=== PATIENT | male | born 1960 | race Caucasian/White ===

== ENCOUNTER → 2019-12-01 17:40 | Outpatient (CLI) | payer MEDICARE, SELFPAY ==
--- NOTE | 2019-12-01 17:49 | XR_ITS ---
PROCEDURE: XR CHEST 2V CLINICAL HISTORY: COPD COMPARISON: CXR CHEST(2 VIEWS-NOT PORTABLE) from 05/20/2013 CXR1 CHEST-PORTABLE from 08/12/2013 CXR2 CHEST-AP VIEW ONLY from 01/21/2014 FINDINGS: The cardiomediastinal silhouette and pulmonary vascularity are within normal limits. There is new density in the lateral segment of the right middle lobe. Mild pneumonia is suspected. Remaining lungs are clear of acute infiltrate. There is no pleural effusion. No acute bony abnormalities. IMPRESSION: Small amount of pneumonia right lung base. Dictated by: Jeffrey Garrido 12/02/2019 08:58 Electronically signed by Jeffrey Garrido in [facility] 12/02/2019 08:58
== END ==
PROVIDERS: PCP Nurse Practitioner Family; Visit Provider Nurse Practitioner Family
DX: J44.0 Chronic obstructive pulmonary disease with (acute) lower respiratory infection (principal)
CPT/HCPCS: 71046

== ENCOUNTER 2020-02-05 23:19 | Emergency (ER) | payer MEDICARE, SELFPAY ==
[2020-02-05 23:31] VITALS: BP 192/102; PULSE 101; RESP 15; TEMP 36.5; O2SAT 92; BMI 30.4
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
--- NOTE | 2020-02-05 23:45 | PC.NURSE ---
offered to contact pd for patient. both patient and son stated would be talking to pd tomorrow.
[2020-02-05 23:51] LABS: Basophils # 0.1 K/mm3 (0-0.2); Basophils % 0.3 % (0.1-2.0); Eosinophils # 0.4 K/mm3 (0.0-0.4); Eosinophils % 2.1 % (0.1-12.0); Hematocrit 40.3 % (42.0-52.0); Hemoglobin 13.2 g/dL (14.1-18.0); Lymphocytes # 1.7 K/mm3 (0.7-4.5); Lymphocytes % 8.7 % (10-50); Mean Corpuscular HGB Conc 32.8 g/dL (31.8-35.4); Mean Corpuscular Hemoglobin 28.6 pg (27.0-31.2); Mean Corpuscular Volume 87.1 fl (80-94); Mean Platelet Volume 8.3 fl (7.4-10.4); Monocytes # 0.7 K/mm3 (0.1-1.0); Monocytes % 3.6 % (1.7-9.3); Neutrophils # 16.2 K/mm3 (1.8-7.8); Neutrophils % 85.3 % (37.0-80.0); Platelet Count 271 K/mm3 (142-424); Red Blood Count 4.63 M/mm3 (4.60-6.20); Red Cell Distribution Width 14.9 % (11.5-17.5)
[2020-02-05 23:52] LABS: MANUAL DIFFERENTIAL MANUAL DIFFERENTIAL (MANUAL DIFF)
[2020-02-06 00:01] VITALS: BP 178/95; PULSE 89; RESP 16; O2SAT 97
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
[2020-02-06 00:04] LABS: Alanine Aminotransferase 18 U/L (12-78); Albumin Level 4.1 g/dl (3.5-5.0); Albumin/Globulin Ratio 1.4 (1.1-1.8); Alkaline Phosphatase 93 U/L (38-126); Anion Gap 9.6 mEq/L (5-15); Aspartate Amino Transferase 35 U/L (17-59); Bilirubin,Total 0.3 mg/dl (0.2-1.3); Blood Urea Nitrogen 6 mg/dl (9-20); Calcium 9.1 mg/dl (8.4-10.2); Carbon Dioxide 31 mmol/L (22.0-30.0); Chloride 100 mmol/L (98-107); Creatinine Clearance Estimated 115 mL/min (50-200); Estimated Glomerular Filt Rate 87 ml/min (>60); GFR (African American) 105 ML/MIN (>60); Globulin 2.9 g/dL (1.3-3.2); Glucose 144 mg/dl (74-100); Potassium 3.6 mmoL/L (3.5-5.1); Sodium 137 mmol/L (136-145)
[2020-02-06 00:10] LABS: Salicylate < 1.0 mg/dL (2.0-20.0)
[2020-02-06 00:11] LABS: Acetaminophen < 10 ug/ml (10-30); Ethyl Alcohol < 10 mg/dl (0-10)
[2020-02-06 00:33] VITALS: BP 163/79; PULSE 88; RESP 16; O2SAT 98
[2020-02-06 00:41] LABS: Lymphocytes % 4 % (10-50); Monocytes % 4 % (2-9); Neutrophils % 84 % (42-76); Platelet Estimate Normal; RBC Morphology Normal; Total Cells Counted 100
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
--- NOTE | 2020-02-06 01:47 | PC.NURSE ---
back from radiology. urine collected and sent to lab.
[2020-02-06 01:50] LABS: Microscopic, Urine URINE MICROSCOPIC (MICROSCOPIC)
[2020-02-06 01:53] LABS: Appearance,Urine CLEAR (Clear); Bilirubin,Urine Negative (Negative); Blood, Urine Negative (Negative); Color,Urine YELLOW (Yellow); Glucose,Urine (UA) Negative (Negative); Ketones,Urine Negative (Negative); Leukocyte Esterase,Urine Negative (Negative); Nitrate,Urine Negative (Negative); Protein,Urine Negative (Negative); Urobilinogen,Urine 0.2 EU/dl (0.2)
[2020-02-06 01:55] LABS: Squamous Epithelial Cell,Urine Occasional #/hpf (0-5)
[2020-02-06 02:04] LABS: Amphetamine/Metha Screen,Urine Negative ng/ml (<1000); Benzodiazepines Screen,Urine Negative ng/ml (<200)
[2020-02-06 02:05] LABS: Barbiturates Screen,Urine Negative ng/ml (<200); Cannabinoid Screen,Urine Negative ng/ml (<50)
[2020-02-06 02:06] LABS: Cocaine Screen,Urine Negative ng/ml (<300)
[2020-02-06 02:07] LABS: Methadone Screen,Urine Negative ng/ml (<300); Opiate Screen,Urine Negative ng/ml (<300)
[2020-02-06 02:08] LABS: Phencyclidine Screen,Urine Negative ng/ml (<25)
[2020-02-06 02:11] VITALS: BP 143/95; PULSE 82; RESP 15; O2SAT 96
--- NOTE | 2020-02-06 02:35 | PC.NURSE ---
call placed to [facility]
[2020-02-06 02:38] VITALS: BP 135/89; PULSE 86; RESP 16; O2SAT 98
--- NOTE | 2020-02-06 02:55 | PC.NURSE ---
call placed to [facility]. report given to nga wilcox
--- NOTE | 2020-02-06 03:17 | PC.NURSE ---
[facility] present, awaiting clearance from secondary truck in order to load patient for transport; report given to julian ramesh-p
[2020-02-06 03:53] VITALS: BP 144/89; PULSE 81; RESP 18; TEMP 36.2; O2SAT 98
== END 2020-02-06 03:56 | disposition short-term general hospital (02) ==
PROVIDERS: Emergency Provider Emergency Medicine
DX: S06.5X9A Traumatic subdural hemorrhage with loss of consciousness of unspecified duration, initial encounter (principal); S02.92XA Unspecified fracture of facial bones, initial encounter for closed fracture; S22.32XA Fracture of one rib, left side, initial encounter for closed fracture; S39.91XA Unspecified injury of abdomen, initial encounter; Y04.2XXA Assault by strike against or bumped into by another person, initial encounter; J44.9 Chronic obstructive pulmonary disease, unspecified; F41.8 Other specified anxiety disorders; K21.9 Gastro-esophageal reflux disease without esophagitis; E78.5 Hyperlipidemia, unspecified; I10 Essential (primary) hypertension; Z90.09 Acquired absence of other part of head and neck; Z88.0 Allergy status to penicillin; Z79.899 Other long term (current) drug therapy
CPT/HCPCS: 70450; 70486; 71045; 71275; 72125; 72170; 73030; 74177; 80053; 80305; 80329; 81001; 85007; 85025; 96365; 99284; Q9967

== ENCOUNTER 2020-03-18 12:45 | Emergency (ER) | payer MEDICARE, SELFPAY ==
[2020-03-18] VITALS (8 sets, daily range): BP systolic 148–193; BP diastolic 84–111; PULSE 50–91; RESP 15–20; TEMP 36.6–37.1; O2SAT 91–98; BMI 30.4
--- NOTE | 2020-03-18 12:46 | ECG_ITS ---
APPROVED REPORT Exam: Resting ECG HR:74 bpm ECG Measurements Heart Rate 74 AXES SD 116 P 47 QRSd 74 QRS 76 QT 372 T 76 QTc 412 <Conclusion> Normal sinus rhythm Normal ECG Electronically signed by : Terrell Bueno, 03/18/2020 20:18:12
--- NOTE | 2020-03-18 12:59 | CT_ITS ---
PROCEDURE: CT ANGIO CHEST CLINCIAL INDICATION: chest pain For all right area arm component valid the the whole with the possible cough and the B the the COMPARISON: CT ANGIO CHEST from 02/06/2020 TECHNIQUE: IV Contrast: 70ML OPTIRAY 350 Axial images obtained with sagittal and coronal reformats. All CT scans at the facility use one or more dose reduction, viz: automated exposure control, ma/kV adjustment per patient size (including targeted exams where dose is matched to indication, i.e. head), or iterative reconstruction technique. FINDINGS: HEART AND MEDIASTINAL STRUCTURES: No evidence of aortic aneurysm dissection or pulmonary embolus. Coronary artery calcifications are present. No mediastinal or hilar mass or adenopathy. LUNGS AND PLEURAL SPACES: COPD with centrilobular and paraseptal emphysema. There is some scattered areas of scarring. Small subpleural density noted in the left upper lobe laterally nonspecific at 6 mm. No lobar consolidation or collapse. Atelectasis versus patchy infiltrate in the right lung base posteriorly BONY STRUCTURES: No acute bony abnormalities apparent. 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 IMPRESSION: No acute finding. No evidence of pulmonary embolus. COPD with centrilobular and paraseptal emphysema Patchy atelectasis or infiltrate in the right lung base. Dictated by: Patrick Erazo MD 03/18/2020 14:35 Electronically signed by Patrick Erazo MD in [place] 03/18/2020 14:35
[2020-03-18 13:13] LABS: Basophils # 0.1 K/mm3 (0-0.2); Basophils % 0.5 % (0.1-2.0); Eosinophils # 0.4 K/mm3 (0.0-0.4); Hematocrit 42.7 % (42.0-52.0); Hemoglobin 14.2 g/dL (14.1-18.0); Lymphocytes # 2.2 K/mm3 (0.7-4.5); Lymphocytes % 19.8 % (10-50); Mean Corpuscular HGB Conc 33.3 g/dL (31.8-35.4); Mean Corpuscular Hemoglobin 28.7 pg (27.0-31.2); Mean Corpuscular Volume 86.2 fl (80-94); Monocytes # 0.5 K/mm3 (0.1-1.0); Monocytes % 4.6 % (1.7-9.3); Neutrophils # 7.8 K/mm3 (1.8-7.8); Neutrophils % 71.1 % (37.0-80.0); Platelet Count 255 K/mm3 (142-424); Red Blood Count 4.95 M/mm3 (4.60-6.20); Red Cell Distribution Width 14.8 % (11.5-17.5)
[2020-03-18 13:16] LABS: Chloride 99 mmol/L (98-107); Potassium 3.4 mmoL/L (3.5-5.1); Sodium 136 mmol/L (136-145)
[2020-03-18 13:19] LABS: Anion Gap 9.4 mEq/L (5-15); Blood Urea Nitrogen 10 mg/dl (9-20); Carbon Dioxide 31 mmol/L (22.0-30.0); Creatinine Clearance Estimated 148 mL/min (50-200); Estimated Glomerular Filt Rate 116 ml/min (>60); GFR (African American) 140 ML/MIN (>60)
[2020-03-18 13:20] LABS: Calcium 8.7 mg/dl (8.4-10.2); Glucose 133 mg/dl (74-100)
[2020-03-18 13:36] LABS: Troponin I < 0.01 ng/ml (0.00-0.034)
--- NOTE | 2020-03-18 14:59 | [facility].EDCP ---
ED Disposition Clinical Impression: Lower lobe pneumonia, Atypical chest pain Disposition: Home, Self-Care Condition on Discharge: Good Instructions: DI for Atypical Chest Pain, Pneumonia-Adult Prescriptions: Azithromycin 250 mg PO DAILY 5 Days #6 tab Transmission Status: Pending to [email or web address] # Cefdinir [Omnicef 300mg Capsule] 300 mg PO BID 10 Days #20 cap Transmission Status: Pending to [email or web address] # Referrals: PCP,No [Primary Care Provider] - - Critical Care Critical Care Time: No Attestation: On 03/18/20, the high probability of a clinically significant, sudden or life threatening deterioration of the following system(s) required my full and direct attention, intervention and personal management. The time I documented below is in addition to time spent performing reported procedures but includes the following listed in this critical care notation. Medical Decision Making - Medical Records Medical records reviewed: Yes: I reviewed the patient's medical records. - [place] Inquiry Pt receiving controlled substance: No Vital Signs: 03/18/20 12:45 03/18/20 12:48 03/18/20 12:49 Temperature 98.7 F Temperature Source Oral Pulse Rate [Left Radial] 91 H 90 78 Respiratory Rate 16 Blood Pressure [Right Arm] 183/111 H 183/111 H 193/106 H Blood Pressure Mean [Right Arm] 135 135 135 Blood Pressure Position [Right Arm] Sitting 02 Sat by Pulse Oximetry 98 93 L 93 L Oxygen Delivery Method Room Air Room Air Room Air 03/18/20 13:20 03/18/20 13:42 03/18/20 14:00 Temperature Temperature Source Pulse Rate [Left Radial] 85 50 L 76 Respiratory Rate 20 20 Blood Pressure [Right Arm] 192/102 H 153/84 H 148/95 H Blood Pressure Mean [Right Arm] 132 107 112 Blood Pressure Position [Right Arm] 02 Sat by Pulse Oximetry 91 L 97 94 L Oxygen Delivery Method Room Air Room Air Room Air 03/18/20 14:36 Temperature Temperature Source Pulse Rate [Left Radial] 76 Respiratory Rate 15 Blood Pressure [Right Arm] 165/91 H Blood Pressure Mean [Right Arm] 115 Blood Pressure Position [Right Arm] Supine 02 Sat by Pulse Oximetry 91 L Oxygen Delivery Method Room Air - Lab Data Lab results reviewed: Yes: I reviewed the patient's lab results. Lab Results 03/18/20 13:00: WBC 11.0 H, RBC 4.95, Hgb 14.2, Hct 42.7, MCV 86.2, MCH 28.7, MCHC 33.3, RDW 14.8, Plt Count 255, MPV 8.0, Neut % (Auto) 71.1, Lymph % (Auto) 19.8, [place] % (Auto) 4.6, Eos % (Auto) 4.0, Baso % (Auto) 0.5, Neut # (Auto) 7.8, Lymph # (Auto) 2.2, [place] # (Auto) 0.5, Eos # (Auto) 0.4, Baso # (Auto) 0.1 03/18/20 13:00: Sodium 136, Potassium 3.4 L, Chloride 99, Carbon Dioxide 31 H, Anion Gap 9.4, BUN 10, Creatinine 0.70, Estimated Creat Clear 148, Estimated GFR 116, Est GFR ( Amer) 140, Glucose 133 H, Calcium 8.7, Troponin I < 0.01 Result diagrams: 03/18/20 13:00 03/18/20 13:00 Orders (Tests/Meds): ED MEDICATIONS Discontinued Medications Generic Name Dose Route Start Last Admin Trade Name Felicia PRN Reason Stop Dose Admin Aspirin 324 mg 03/18/20 13:01 03/18/20 13:02 Aspirin 81mg Chewable Tablet PO 03/18/20 13:02 324 mg ONCE ONE Administration Enalaprilat 5 mg 03/18/20 13:31 03/18/20 13:57 Vasotec 2.5mg/2ml Vial IV 03/18/20 13:32 Not Given ONCE ONE Ioversol 70 ml 03/18/20 13:59 Rad-Optiray 350 100ml Vial IV 03/18/20 14:00 ONCE ONE Protocol Morphine Sulfate 4 mg 03/18/20 13:22 03/18/20 13:23 Morphine 4mg/Ml Syringe IV 03/18/20 13:23 4 mg ONCE ONE Administration Nitroglycerin 1 gm 03/18/20 13:01 03/18/20 13:03 Nitroglycerin 1 Inch Oint Udp TD 03/18/20 13:02 1 gm ONCE ONE Administration Ondansetron HCl 4 mg 03/18/20 13:23 03/18/20 13:23 Zofran 4mg/2ml Vial IV 03/18/20 13:24 4 mg ONCE ONE Administration Sodium Chloride 50 ml 03/18/20 13:59 Rad-Ns 50ml Vial IV 03/18/20 14:00 ONCE ONE Sodium Chloride 10 ml 03/18
== END 2020-03-18 15:55 | disposition home or self-care (01) ==
PROVIDERS: Emergency Provider Family Medicine
DX: J18.9 Pneumonia, unspecified organism (principal); J44.9 Chronic obstructive pulmonary disease, unspecified; I25.10 Atherosclerotic heart disease of native coronary artery without angina pectoris; F41.8 Other specified anxiety disorders; F17.210 Nicotine dependence, cigarettes, uncomplicated; Z88.0 Allergy status to penicillin; Z79.899 Other long term (current) drug therapy
CPT/HCPCS: 71275; 80048; 84484; 85025; 93005; 96365; 96375; 99284; J2405

== ENCOUNTER → 2021-10-11 13:57 | Outpatient (CLI) | payer MEDICARE, SELFPAY | PROVIDERS: PCP Nurse Practitioner Family; Visit Provider Nurse Practitioner | DX: Z20.822 Contact with and (suspected) exposure to COVID-19 (principal) | CPT/HCPCS: C9803; U0003; U0005 ==

== ENCOUNTER 2022-05-12 16:40 | Emergency (ER) | payer MEDICARE, SELFPAY ==
--- NOTE | 2022-05-12 17:10 | EXP.UTC ---
Discharge Plan Disposition Patient Disposition: Home, Self-Care Condition: Good Prescriptions Prescriptions: New azithromycin [Zithromax] 250 mg tablet 250 mg PO UD DOSE PK Qty: 6 0RF Rx Instructions: Take two (2) tablets today, then one (1) tablet days #2 thru #5 benzonatate [benzonatate] 100 mg capsule 100 mg PO TIDP PRN (Reason: Cough) Qty: 30 0RF methylprednisolone 4 mg Tablets,Dose Pack 4 mg PO DIRECTED Qty: 21 0RF No Action albuterol sulfate 18 GM HFA aerosol inhaler 2 puffs IH Q6HP PRN (Reason: Shortness Of Breath Or Wheezing) Qty: 1 0RF buprenorphine-naloxone 1 EACH film 1 each SL TID gabapentin 400 MG capsule 600 mg PO TID amlodipine 5 MG tablet 10 mg PO DAILY omeprazole magnesium 20 MG tablet,delayed release (DR/EC) 20 mg PO DAILY pravastatin 80 MG tablet 80 mg PO HS azithromycin 250 MG tablet 250 mg PO DAILY 5 Days Qty: 6 0RF Rx Instructions: 2 tabs po x 1 day, then 250 mg daily x 4 days cefdinir 300 MG capsule 300 mg PO BID 10 Days Qty: 20 0RF Referrals Follow up/Referrals: Vicenta Reno APRN [Primary Care Provider] - See instructions Activity Restrictions/Add. Instructions Additional Instructions/Restrictions: Drink plenty of fluids. Take tylenol or ibuprofen for pain or fever. Take the medications as directed. Follow up with your regular doctor. GO TO THE ER FOR ANY WORSENING SYMPTOMS Quarantine until you know the results of your covid-19 test. Notify your school or workplace of your results and follow their instructions regarding return to work/school. Clinical Impressions Clinical Impression: Acute bronchitis, Acute viral syndrome Instructions Patient Instructions: DI for Acute Bronchitis Discharge ED Provider: Bryson Manning [facility] HPI General Stated complaint: covid test cough Time Seen by Provider: 05/12/22 17:12 History of Present Illness Provider Complaint: He states that he has had a cough and chest congestion for the past 2 days. Related Data Home Medications Medication Instructions Recorded Confirmed buprenorphine 4 mg-naloxone 1 mg 1 each SL TID Withdrawal 06/21/19 03/18/20 sublingual film amlodipine 5 mg tablet 10 mg PO DAILY High blood pressure 03/18/20 03/18/20 gabapentin 400 mg capsule 600 mg PO TID pain 03/18/20 03/18/20 omeprazole magnesium 20 mg 20 mg PO DAILY GERD 03/18/20 03/18/20 tablet,delayed release pravastatin 80 mg tablet 80 mg PO HS Cholesterol 03/18/20 03/18/20 Previous Rx's Medication Instructions Recorded albuterol sulfate 90 mcg/actuation 2 puffs IH Q6HP PRN Shortness Of 06/21/19 aerosol inhaler Breath Or Wheezing #1 inh azithromycin 250 mg tablet 250 mg PO DAILY Infection 5 days 03/18/20 #6 tabs cefdinir 300 mg capsule 300 mg PO BID 10 days #20 caps 03/18/20 azithromycin 250 mg tablet 250 mg PO UD DOSE PK #6 tabs 05/12/22 (Zithromax) benzonatate 100 mg capsule 100 mg PO TIDP PRN Cough #30 caps 05/12/22 methylprednisolone 4 mg tablets in 4 mg PO DIRECTED #21 tabs 05/12/22 a dose pack Allergies Allergy/AdvReac Type Severity Reaction Status Date / Time Penicillins Allergy Verified 05/12/22 17:16 [facility] Social History Smoking Status: Current every day smoker tobacco type: cigarettes packs per day: 2 second hand exposure: Yes alcohol intake: never current occupational status: other Travel in the last 8 weeks: None household members: other housing: other current occupational exposures/hazards: No caffeine: Yes ROS Obtained: Yes All systems reviewed & no additional complaints except as documented Constitutional Constitutional: Reports system reviewed and no additional complaints, except as documented, Denies chills and Denies fever(s) Eyes Eyes: Denies eye discharge ENT Ears, Nose, Mouth, and Throat: Denies dysphagia, Denies sore throat and Denies thro
[2022-05-12 17:13] VITALS: BP 139/97; PULSE 80; RESP 18; TEMP 36.7; O2SAT 96; BMI 31.9
[2022-05-12 17:33] VITALS: BP 139/97; PULSE 80; RESP 18; TEMP 36.7
== END 2022-05-12 17:37 | disposition home or self-care (01) ==
PROVIDERS: Emergency Provider Nurse Practitioner Family; PCP Nurse Practitioner Family
DX: J20.9 Acute bronchitis, unspecified (principal); B34.9 Viral infection, unspecified; F17.210 Nicotine dependence, cigarettes, uncomplicated; Z20.822 Contact with and (suspected) exposure to COVID-19
CPT/HCPCS: 99212; C9803; G0463; U0003; U0005

== ENCOUNTER → 2023-07-27 12:33 | Outpatient (CLI) | payer MEDICARE, SELFPAY ==
--- OUTSIDE RECORDS SUMMARY | 2023-07-27 12:37 | XMS_ITS | Continuity of Care Document ---
Author Name Unknown Organization [facility] Address 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 Role Phone Eduardo Yanez MD Unavailable Unavailable Allergies, Adverse Reactions, Alerts Substance Reaction Status Criticality naproxen bleeding Active No Information KETOROLAC TROMETHAMINE hives, swelling Active No Information Penicillins possible Active No Informat ion Medications Medication Instructions Dosage Effective Dates (start - stop) Status Comments Aspir-81 81 mg Tab take 1 tablet (81MG) by oral route every day - Active Advair Diskus 250 mcg-50 mcg/dose for Inhalation inhale 1 puff by inhalation route 2 times every day in the morning and evening approximately 12 hours apart 1.00 puff - Active pravastatin 40 mg Tab take 1 tablet (40MG) by oral route every day 40 MG - Active lisinopril-hydrochl orothiazide 10 mg-12.5 mg Tab take 1 tablet by oral route every day 1.00 tablet - Active Xanax 1 mg Tab take 1 by Oral route 4 times every day as needed 1 - Active Procedures Procedure Date OFFICE/OUTPATIENT VISIT, EST OFFICE/OUTPATIENT VISIT, NEW Advance Directives Directive Yes / No Effective Date File Name Resuscitation Not Answered N/A N/A Life Support Not Answered N/A N/A
[2023-07-27 12:51] LABS: Basophils # 0.1 K/mm3 (0-0.2); Basophils % 0.4 % (0.1-2.0); Eosinophils # 0.5 K/mm3 (0.0-0.4); Eosinophils % 3.4 % (0.1-12.0); Hematocrit 43.5 % (42.0-52.0); Hemoglobin 13.8 g/dL (14.1-18.0); Lymphocytes # 2.8 K/mm3 (0.7-4.5); Lymphocytes % 19.4 % (10-50); Mean Corpuscular HGB Conc 31.7 g/dL (31.8-35.4); Mean Corpuscular Hemoglobin 28.3 pg (27.0-31.2); Mean Corpuscular Volume 89.2 fl (80-94); Mean Platelet Volume 8.5 fl (7.4-10.4); Monocytes # 0.5 K/mm3 (0.1-1.0); Monocytes % 3.7 % (1.7-9.3); Neutrophils # 10.4 K/mm3 (1.8-7.8); Neutrophils % 73.1 % (37.0-80.0); Platelet Count 287 K/mm3 (142-424); Red Blood Count 4.88 M/mm3 (4.60-6.20); Red Cell Distribution Width 13.9 % (11.5-17.5); White Blood Count 14.2 K/mm3 (4.8-10.8)
[2023-07-27 13:12] LABS: Chloride 100 mmol/L (98-107); Sodium 136 mmol/L (136-145)
[2023-07-27 13:16] LABS: Blood Urea Nitrogen 29 mg/dl (9-20); Calcium 8.6 mg/dl (8.4-10.2); Carbon Dioxide 24 mmol/L (22.0-30.0); Estimated Glomerular Filt Rate 36 ml/min (>60); GFR (African American) 44 ML/MIN (>60); Glucose 164 mg/dl (74-100)
== END ==
PROVIDERS: PCP Family Medicine; Visit Provider Surgery
DX: I70.202 Unspecified atherosclerosis of native arteries of extremities, left leg (principal); E11.9 Type 2 diabetes mellitus without complications; E78.00 Pure hypercholesterolemia, unspecified; N18.30 Chronic kidney disease, stage 3 unspecified
CPT/HCPCS: 36415; 80048; 85025